=== PATIENT | female | born 1990 | race Two or more races ===

== ENCOUNTER 2020-04-04 15:04 | Emergency (ER) | payer SELFPAY ==
[~2020-04-04] VITALS: Ht 157.5 cm; Wt 95.0 kg
[2020-04-04 15:12] VITALS: BP 140/77
[2020-04-04] MEDS ORDERED: DIPH,PERTUSS(ACELL),TET VAC/PF 0.5 ML SYRINGE. VAX IM ONE (15:30)
[2020-04-04] MEDS ORDERED: CLIN300C8 PO (15:30)
--- NOTE | 2020-04-04 15:30 | PHYS DOC ---
Past Medical History Past Medical History: Other Additional Past Medical Histor: PCOS (VIKI BRAR APRN) Past Surgical History: No Surgical History (VIKI BRAR APRN) Smoking Status: Current Every Day Smoker Alcohol Use: Occasionally (VIKI BRAR APRN) General Adult EDM: Chief Complaint: TOE PROBLEM HPI: HPI: Patient is a 29 year old female who presents with infected ingrown toenail to the left great toe that began 3 weeks ago. She reports having an acrylic nail that fell off and now the area is draining yellow material. Denies any fever. (VIKI BRAR APRN) Review of Systems: Review of Systems: Constitutional: Denies fever or chills. [] Musculoskeletal: Denies back pain or joint pain. [] Integument: Reports infected ingrown toenail to the left great toe Neurologic: Denies headache, focal weakness or sensory changes. [] Psychiatric: Denies depression or anxiety. [] (VIKI BRAR APRN) Heart Score: Risk Factors: Risk Factors: DM, Current or recent (<one month) smoker, HTN, HLP, family history of CAD, obesity. Risk Scores: Score 0 - 3: 2.5% MACE over next 6 weeks - Discharge Home Score 4 - 6: 20.3% MACE over next 6 weeks - Admit for Clinical Observation Score 7 - 10: 72.7% MACE over next 6 weeks - Early Invasive Strategies (VIKI BRAR APRN) Allergies: Allergies: Allergies Coded Allergies Type Severity Reaction Last Updated Verified Penicillins Allergy Severe ANAPHALAXIS 04/04/20 Yes Sulfa (Sulfonamide Antibiotics) Allergy Intermediate RASH 04/04/20 Yes tramadol Adverse Reaction Intermediate NAUSEA VOMITING 04/04/20 Yes (VIKI BRAR APRN) Physical Exam: PE: Constitutional: Well developed, well nourished, no acute distress, non-toxic appearance. [] Skin: Left great toe lateral aspect with a trimmed down nailbed, there is small amount of swelling around the left great toe nail, there is trace drainage on the medial aspect of the left great toe, trace erythema around the nailbed. +2 left pedal pulse, cap refill less than 2 seconds to left great toe. Back: No tenderness, no CVA tenderness. [] Extremities: No tenderness, no cyanosis, no clubbing, ROM intact, no edema. [] Neurologic: Alert and oriented X 3, normal motor function, normal sensory function, no focal deficits noted. [] Psychologic: Affect normal, judgement normal, mood normal. [] (VIKI BRAR APRN) Current Patient Data: Vital Signs: Vital Signs Date Time Temp Pulse Resp B/P (MAP) Pulse Ox O2 Delivery O2 Flow Rate FiO2 04/04/20 15:12 98.3 83 18 140/77 (98) 98 98.3 (VIKI BRAR APRN) EKG: EKG: [] (VIKI BRAR APRN) Radiology/Procedures: Radiology/Procedures: [] (VIKI BRAR APRN) Course & Med Decision Making: Course & Med Decision Making Pertinent Labs and Imaging studies reviewed. (See chart for details) This is a 29-year-old female patient with an infected ingrown left great toenail. Patient was started on clindamycin, tetanus updated, wound care instructions provided. Follow-up with a hat cutter. Patient eloped. Called patient she states she was informed they will charge her $150 so she took off and went to the PCP because PCP can do the same thing for a cheaper yang. (VIKI BRAR APRN) Dragon Disclaimer: Dragon Disclaimer: This electronic medical record was generated, in whole or in part, using a voice recognition dictation system. (VIKI BRAR APRN) Departure Departure Impression: Primary Impression: Ingrown toenail of left foot with infection Disposition: 01 HOME, SELF-CARE Condition: STABLE Referrals: UNKNOWN PCP NAME (PCP) ROBIN VILLEDA DPM follow up in 1-2 weeks Patient Instructions: Infected Ingrown Toenail Additional Instructions: You have an infected ingrown left great toenail. Take the prescribed antibiotics until completed. Soak the affected toenail in warm water with Epson salts 2-3 times a day. Please follow-up with the provided hat cutter in the next 1 to 2 weeks. Scripts Clindamycin Hcl (CLINDAMYCIN HCL) 300 Mg Capsule 1 CAP PO TID, #21 CAP Prov: VIKI BRAR APRN 04/04/20 Attending Signature Attending Signature I have reviewed the PA/HOUSE SUPERINTENDENT's note and plan of care. I was available for consultation as needed during the patient's visit in the emergency department. I agree with the clinical impression, plan, and disposition. (REGIS PEREZ DO) VIKI BRAR APRN April 04, 2020 15:30 REGIS PEREZ DO April 05, 2020 13:26
== END 2020-04-04 15:43 | disposition home or self-care (01) ==
LOC: ER 15:04
DX: L60.0 Ingrowing nail (principal); F17.200 Nicotine dependence, unspecified, uncomplicated; Z88.0 Allergy status to penicillin; Z88.2 Allergy status to sulfonamides; Z88.6 Allergy status to analgesic agent
CPT/HCPCS: 99282; 99283